=== PATIENT | female | born 2000 | race Caucasian/White ===

== ENCOUNTER → 2024-09-08 | Outpatient (CLI) | payer MEDICAID, SELFPAY ==
--- NOTE | 2024-09-08 15:24 | XR_ITS ---
Examination: Abdomen AP single view Technique: AP portable supine abdomen, single view Exam date and time: September 08, 2024 1536 hours INDICATIONS: Diagnosis kidney stones one year ago. FINDINGS: 5 mm upper pole right renal calculus No ureteral calculi Moderate stool throughout the colon IMPRESSION: 5 mm upper pole right renal calculus
== END | disposition home or self-care (01) ==
PROVIDERS: PCP Nurse Practitioner Family; Referring Provider Internal Medicine; Visit Provider Internal Medicine
DX: N20.0 Calculus of kidney (principal)
CPT/HCPCS: 74018

== ENCOUNTER 2024-12-23 15:30 | Outpatient (RCR) | payer MEDICAID, SELFPAY ==
--- NOTE | 2024-12-07 14:17 | PTNOTE_ITS ---
PT OP Initial Eval Patient Information Outpatient Physical Therapy Treatment Date: 12/07/24 Visit Reasons: WEAKNESS/INSTABILITY Medical Diagnosis: R26.8; Right Ankle Pain Treatment Dx #1: Right Ankle Pain Treatment Dx #2: Gait Difficulty Start of Care: 12/07/24 Date of Onset: 05/22/24 Smoking Status Smoking Status: Never smoker Initial Assessment Subjective: Pt is a 24 y/o female reports of right ankle inversion sprain 05/22/24 where she stepped wrong near the hospital. According to patient info print press operator think there's a small fracture. Pt was in a boot for several months and wean into a ankle sleeve. Pt still has pain (8/10) with activities. Pt has limitation with standing, walking, chores, self care, cooking, cleaning, balance, and performing recreational activities. Objective: Right Ankle AROM DF: 10 deg PF: 20 deg Inversion: 12 deg Eversion: 5 deg Right Ankle MMTs: grossly 3-/5 Right Hip MMTs: grossly 3-/5 SLS: unable Assessment: Pt demonstrate right ankle mobility and strength deficits s/p ankle inversion injury leading to difficulty with ADLs. Pt will benefit from physical therapy to increase ROM, strength, and work on stability. Short Term and Prison Goals 1) Increase right ankle AROM WNL in 12 wks to be able to perform chores 2) Decrease ankle pain to 2/10 in 12 wks to be able to stand more than 30 mins 3) Increase ankle MMTs grossly to 4/5 in 12 wks to be able to perform recreatio nal activities 4) Increase hip MMTs grossly to 4-/5 in 12 wks to be able to walk more than 30 mins 5) Increase SLS to 10 sec to be able to perform self care activities 6) Indep with HEP Treatment Plan 1) Manual Therapy 2) Therapeutic Activities 3) Therapeutic Exercises 4) Modalities (ice, heat) 5) Balance Training Frequency and Duration: 2 x wk for 12 wks Certification Dates: 12/07/24 to 03/09/25 Procedure Charges OP PT Eval Mod Complex 30 minutes: Yes
--- NOTE | 2024-12-15 16:17 | PT.ODAYNRPT ---
PT Outpatient Daily Note OP Daily Note Outpatient Physical Therapy Treatment Date: 12/15/24 Visit Reasons: WEAKNESS/INSTABILITY Subjective: Pt c/o ankle feeling sore, has been doing a lot of walking. Objective: Please see flow sheet for ther ex list. Assessment: Pt demonstrates poor activity tolerance due to pain response . Plan: Assess response to treatment. Length of Time (minutes) of Treatment: 30 Minutes Procedure Charges Therapeutic Exercise 30 minutes: Yes
--- NOTE | 2024-12-23 15:57 | PT.ODAYNRPT ---
PT Outpatient Daily Note OP Daily Note Outpatient Physical Therapy Treatment Date: 12/23/24 Visit Reasons: WEAKNESS/INSTABILITY Subjective: Pt's ankle is better. Pt is walking longer with less pain. Objective: Please see flow chart for list of ther ex performed Assessment: progressing with ankle AROM in all plane with less pain reported Plan: Continue with PT Length of Time (minutes) of Treatment: 30 Minutes Procedure Charges Therapeutic Exercise 30 minutes: Yes
== END 2024-12-27 23:59 | disposition home or self-care (01) ==
LOC: CPTX 15:30
PROVIDERS: PCP Podiatrist; Referring Provider Podiatrist; Visit Provider Podiatrist
DX: M25.571 Pain in right ankle and joints of right foot (principal); R26.2 Difficulty in walking, not elsewhere classified; R26.89 Other abnormalities of gait and mobility; S93.401D Sprain of unspecified ligament of right ankle, subsequent encounter; X50.1XXD Overexertion from prolonged static or awkward postures, subsequent encounter
CPT/HCPCS: 97110; 97162

== ENCOUNTER 2025-01-20 13:30 | Outpatient (RCR) | payer MEDICAID, SELFPAY ==
--- NOTE | 2024-12-29 15:00 | PT.ODAYNRPT ---
PT Outpatient Daily Note OP Daily Note Outpatient Physical Therapy Treatment Date: 12/29/24 Visit Reasons: Weakness/Instability Subjective: Pt feels like she's almost ready to go without her ankle brace. Pt still notice ankle instability with walking. 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
--- NOTE | 2024-12-31 14:47 | PT.ODAYNRPT ---
PT Outpatient Daily Note OP Daily Note Outpatient Physical Therapy Treatment Date: 12/31/24 Visit Reasons: Weakness/Instability Subjective: Pt reports ankle is doing a little better, has trying to wear ankle support less. Pt wears ankle support when going out in community. Objective: Please see flow sheet for ther ex list. Assessment: Pt ankle and R LE shaky post heel raise likely due to poor muscle endurance, pt continues to wear ankle support. Plan: Continue with POC. Length of Time (minutes) of Treatment: 30 Minutes Procedure Charges Therapeutic Exercise 30 minutes: Yes
--- NOTE | 2025-01-06 14:54 | PT.ODAYNRPT ---
PT Outpatient Daily Note OP Daily Note Outpatient Physical Therapy Treatment Date: 01/06/25 Visit Reasons: Weakness/Instability Subjective: Pt decided to take off her ankle brace this week. Pt's ankle feels unstable but will continue to try to wean off the brace. Objective: Please see flow chart for list of ther ex performed Assessment: able to demonstrate more ankle AROM in all plane with exercises today since patient is not wear brace during the exercise. Difficulty completing TG squat due to LEs feeling unstable. Pt only performed 10 TG squats Plan: Continue with PT Length of Time (minutes) of Treatment: 30 Minutes Procedure Charges Therapeutic Exercise 30 minutes: Yes
--- NOTE | 2025-01-11 16:14 | PT.ODAYNRPT ---
PT Outpatient Daily Note OP Daily Note Outpatient Physical Therapy Treatment Date: 01/11/25 Visit Reasons: Weakness/Instability Subjective: According to mom patient is limping more due to walking a lot this past week. Objective: Please see flow chart for list of ther ex performed Assessment: instructed patient on ankle 3 way with YTB for HEP. Pt performed safely and correctly. Pt encouraged to walk PRN to help with normalize WB on the right ankle Plan: Continue with PT Length of Time (minutes) of Treatment: 30 Minutes Procedure Charges Therapeutic Exercise 30 minutes: Yes
--- NOTE | 2025-01-20 14:06 | PT.ODAYNRPT ---
PT Outpatient Daily Note OP Daily Note Outpatient Physical Therapy Treatment Date: 01/20/25 Visit Reasons: Weakness/Instability Subjective: Pt reports she continues to be out of ankle brace, notices she is not limping as much as before is paying attention more to her walking pattern. Objective: Please see flow sheet for ther ex list. Assessment: Pt instructed SLB exercise on R ankle wtih L tip toe WB, pt can hold ~4 seconds with minimal sway. Plan: Continue with POC. Length of Time (minutes) of Treatment: 30 Minutes Procedure Charges Therapeutic Exercise 30 minutes: Yes
== END 2025-01-26 23:59 | disposition home or self-care (01) ==
LOC: CPTX 13:30
PROVIDERS: Referring Provider Podiatrist; Visit Provider Podiatrist
DX: M25.571 Pain in right ankle and joints of right foot (principal); R26.2 Difficulty in walking, not elsewhere classified; R26.89 Other abnormalities of gait and mobility; S93.401D Sprain of unspecified ligament of right ankle, subsequent encounter; X50.1XXD Overexertion from prolonged static or awkward postures, subsequent encounter
CPT/HCPCS: 97110

== ENCOUNTER 2025-02-15 13:00 | Outpatient (RCR) | payer MEDICAID, SELFPAY ==
--- NOTE | 2025-02-03 13:46 | PT.ODAYNRPT ---
PT Outpatient Daily Note OP Daily Note Outpatient Physical Therapy Treatment Date: 02/03/25 Visit Reasons: weakness/instability Subjective: Pt reports noticing she can walk better. Objective: Please see flow sheet for ther ex list. Assessment: Pt tends to supinate and shift weight on heel during closed chain interventions and SLB exercise, verbal cues and demonstration to work on placing foot flat, pt complied. Plan: Continue with pOC. Length of Time (minutes) of Treatment: 30 Minutes Procedure Charges Therapeutic Exercise 30 minutes: Yes
--- NOTE | 2025-02-08 14:22 | PT.ODAYNRPT ---
PT Outpatient Daily Note OP Daily Note Outpatient Physical Therapy Treatment Date: 02/08/25 Visit Reasons: weakness/instability Subjective: Pt walking better and more confident now. Pt mentioned she stopped wearing the ankle brace. Objective: Please see flow chart for list of ther ex performed Assessment: improved dynamic balance with side step and monster with minimal use of hands for balance. Frequent cues to decrease downward gaze to work on improving ankle proprioception with closed chain exercises Plan: Continue with PT Length of Time (minutes) of Treatment: 30 Minutes Procedure Charges Therapeutic Exercise 30 minutes: Yes
--- NOTE | 2025-02-15 13:33 | PT.ODS1RPT ---
PT OP Progress/Discharge Note Date of Service: 02/15/25 Progress Note/DC Note Progress Note/Discharge Note: Progress Note Patient Information Visit Reasons: weakness/instability Medical Diagnosis: R26.8; Right Ankle Pain Treatment Dx #1: Right Ankle Pain Service Continue Service or Discharge: Continue Service Certification Date Certification Dates: 02/15/25 to 05/18/25 Status Subjective: Pt mentioned her ankle feels more stable and has more confident with walking, standing, balance, and chores. Pt stated that at times ankle will give due to pain. Pt stopped wearing ankle sleeve and feels confidence without it. Pt will like to continue physical therapy to work on strength, mobility, and stability. Objective: Right Ankle AROM: all motions are WFL Right Ankle MMTs: grossly 3+/5 Right Hip MMTs: grossly 3/5 SLS: 5 sec Assessment: Pt is progressing with ankle AROM and strength allowing her to start walking, perform chores, and ADLs with less limitation. Pt has not met set goals and will continue to benefit from physical therapy; thank you for your referrals. Plan: Continue with PT/POC and add 8 sessions (2 x wk for 4 wks) Procedure Charges Therapeutic Exercise 30 minutes: Yes
== END 2025-02-26 23:59 | disposition home or self-care (01) ==
LOC: CPTX 13:00
DX: M25.571 Pain in right ankle and joints of right foot (principal); R26.2 Difficulty in walking, not elsewhere classified; R26.89 Other abnormalities of gait and mobility; R53.1 Weakness; S93.401D Sprain of unspecified ligament of right ankle, subsequent encounter; X50.1XXD Overexertion from prolonged static or awkward postures, subsequent encounter
CPT/HCPCS: 97110